=== PATIENT | female | born 1990 ===

== ENCOUNTER 2023-03-22 11:00 | Outpatient (CLI) | payer OTHER | END 2023-03-22 17:06 | disposition home or self-care (01) | LOC: PRENATAL 11:00 | PROVIDERS: ATTEND Obstetrics & Gynecology Maternal & Fetal Medicine | DX: O35.3XX0 Maternal care for (suspected) damage to fetus from viral disease in mother, not applicable or unspecified (principal); O44.00 Complete placenta previa NOS or without hemorrhage, unspecified trimester; O30.90 Multiple gestation, unspecified, unspecified trimester; Z3A.20 20 weeks gestation of pregnancy ==